=== PATIENT | female | born 1970 | race Caucasian/White ===

== ENCOUNTER 2022-08-28 09:54 | Observation (INO) ==
--- NOTE | 2022-07-22 15:03 | PAT Medication Instructions ---
Medication Instructions Date of Service July 22, 2022 Home Medications meloxicam 15 mg tablet 15 mg PO QAM ASK your surgeon for instructions meloxicam 15 mg tablet 15 mg PO QAM Other Notes NOTHING TO EAT OR DRINK AFTER MIDNIGHT. If you have any questions please call us at [phone] or [phone] or [phone] or [phone]
--- NOTE | 2022-08-03 08:19 | Anesthesiology Consultation ---
Date of Service August 03, 2022 Assessment & Plan (1) Encounter for pre-operative examination: Plan - check urine test STAT am DOS. - Outpatient joint assessment: Patient is currently scheduled for inpatient pathway. If re-evaluated pending system levels during current pandemic/surgeon requests outpatient pathway, patient is not acceptable candidate for outpatient joint program from anesthesia standpoint. Chart Review Chart Review: Acceptable Risk for Surgery and Patient seen in Pre Admission Testing Teaching & Discussion Pre-Anesthesia Teaching/Discussion Notes: Instructed NPO after midnight before surgery, except medications with 15 cc of water. Medication instructions provided according to the PAT guidelines. History Surgery Operation Date: 08/28/22 09:20 Proposed Procedures p Left Total Knee Arthroplasty - Lj Kebede, Height/Weight Height: 5 ft 6.5 in Weight: 140.614 kg Allergies Allergy/AdvReac Type Severity Reaction Status Date / Time Penicillins Allergy Intermediate Rash Verified 07/22/22 14:22 Opioids - Morphine Analogues AdvReac Intermediate nausea Verified 08/03/22 08:21 Medications Home Medications Medication Instructions Recorded Confirmed Last Taken meloxicam 15 mg tablet 15 mg PO QAM 06/03/22 07/22/22 Unknown Additional Notes: Pt states she takes claritin as needed for seasonal allergies, was advised to NOT take this day of surgery. This was also written on her medication instructions. She denied additional medications, questions or concerns. Past Medical History Medical History (Updated 08/03/22 @ 09:11 by Nay Patrick PA-C) History of COVID-19 09/2021, home test, not hosp; headache, nausea, congestion, body aches>resolved. Hx of reduction of closed fracture lt. leg Patient denies h/o stroke, seizures, heart attack, heart failure, DM, HTN, blood clots or blood transfusions. Exercise / Class Metabolic Activity III < 4 Walking/Shop/Light housework (denies chest discomfort or shortness of breath with usual activities, does not ambulate stairs due to knee pain, ambulates with cane) Past Surgical History Surgical History Hx laparoscopic cholecystectomy Hx of breast augmentation Hx of section x2 Hx of gastric bypass Past Anesthesia History No Hx of Anesthesia Complications and No Family Hx of Anesthesia Complications History of PONV History of PONV (denies needing scop patch) and Hx of Motion Sickness Social History Smoking Status: Never smoker Do You Dip or Chew Tobacco: No Hx Alcohol Use: Yes Alcohol type: wine Alcohol Intake Frequency Comment: once per week Hx Substance Use: No substance use type: does not use Review of Systems Patient denies chest pain, shortness of breath, dyspnea on exertion, snoring, witnessed apneas, reflux, fever, chills, cough, wheezing, or palpitations. Physical Exam Vital Signs Vitals BP 135/82 P 71 TEMP 97.8 SP02 99% on RA RESP 17 Physical Full cervical extension range of motion without pain TMD 3.5 finger breadths Mallampati Score 2 Dentition: implant left upper side and several caps/crowns; denies chipped or loose teeth, caps/crowns, implants or bridges Lungs: normal respiratory effort. Good air movement, clear throughout to aus cultation, no adventitious breath sounds Cardiac: regular rate and rhythm, no murmurs noted Carotid arteries: negative bruit bilat Lab Results Anesthesia Preop Results Results Anesthesia Widget: WBC 5.52 K/ul (4.8-10.8) 08/03/22 Hgb 15.0 g/dl (12.0-16.0) 08/03/22 Hct 45.1 % (37.0-47.0) 08/03/22 Plt 193 K/uL (130-400) 08/03/22 Na 139 mmol/L (136-145) 08/03/22 K 4.1 mmol/L (3.5-5.1) 08/03/22 Cl 107 mmol/L (98-107) 08/03/22 CO2 27 mmol/L (21-32) 08/03/22 BUN 15 mg/dl (6-23) 08/03/22 Creat 0.76 mg/dl (0.6-1.2) 08/03/22 Glucose Level 91 mg/dl (70-99(Fasting)) 08/03/22 PT 10.6 Seconds (9.0-12.0) 08/03/22 PTT 27.5 Seconds (21.0-31.0) 08/03/22 INR 1.0 (0.9-1.1) 08/03/22 Blood Type A Positive 08/03/22 Antibody Screen NEGATIVE 08/03/22 Testing Electrocardiogram Date: 08/03/22 Sinus bradycardia, rate 51 bpm Rightward axis Chest X-Ray Date: 08/03/22 No acute process. COVID-19 Risk Screen Screening Information COVID-19 Screen Date: 08/03/22 Exposure 21 Days Family/Household +COVID Last 21 Days: No Exposure 10 Days Any COVID Exposure Last 10 Days: No Symptoms Last 10 Days Experienced COVID Sx Last 10 Days: No + COVID 0-90 Days COVID + in Last 0-90 Days: No
--- NOTE | 2022-08-27 17:15 | History & Physical Report ---
Date of Service August 27, 2022 Assessment & Plan (1) Osteoarthritis of left knee: We will proceed with a left total knee arthroplasty. Postoperatively she will be started on aspirin for DVT prophylaxis and kept overnight in the hospital for postop medical management. She plans to go to outpatient physical therapy in [facility] upon discharge. History of Present Illness Chief Complaint: Osteoarthritis of the left knee. Primary Care Provider: Manpreet Roberts is a pleasant 51-year-old female who has been dealing with chronic left knee pain. This has been going on for over 10 years. She does have a gastric bypass surgery done in 2009. She did gain a little bit of weight back. She is having a lot of difficulty ambulating. Both of her knees are chronically sore. She has been having injections for years in her knees. X-rays and clinical examination been diagnostic for advanced osteoarthritis of the left knee. After failed conservative treatment, she has elected proceed with a left total knee arthroplasty. Allergies Allergy/AdvReac Type Severity Reaction Status Date / Time Penicillins Allergy Intermediate Rash Verified 07/22/22 14:22 Opioids - Morphine Analogues AdvReac Intermediate nausea Verified 08/03/22 08:21 Home Medications Medication Instructions Recorded Confirmed Type meloxicam 15 mg tablet 15 mg PO QAM 06/03/22 07/22/22 History Past Med/Surg History Medical History History of COVID-19 09/2021, home test, not hosp; headache, nausea, congestion, body aches>resolv ed. Hx of reduction of closed fracture lt. leg Surgical History Hx laparoscopic cholecystectomy Hx of breast augmentation Hx of section x2 Hx of gastric bypass Social History Smoking Status: Never smoker Second Hand Exposure: Yes (hx growing up); Do You Dip or Chew Tobacco: No; Tobacco Cessation Education Requested by Patient: No Hx Alcohol Use: Yes Alcohol type: wine Hx Substance Use: No Preferred Language: Djiboutian Communication Ability: Effective Clinical Review Specialist Required: No Beliefs That Will Affect Care: None Current Living Situation: Spouse and Family Other Information That Helps Us Care for You: No Feels Safe at Home: Yes Safety Concerns: Feels Safe At This Time Assistive Devices: Glasses Assistive Devices Comment: glasses for distance Review of Systems All systems reviewed & are unremarkable except as noted in HPI & below. Physical Exam On physical examination of the left knee, she has a varus deformity. She is range of motion 0 to 120 degrees. No instability. Pain of the distal medial femoral condyle.. Constitutional WD/WN, vitals as above Eyes PERRL, conjunctivae normal, anicteric sclerae ENMT external ear and nose normal, oropharynx normal Neck trachea midline, no thyromegaly Respiratory normal respiratory effort, lungs clear to auscultation Cardiovascular RRR, no murmur, no edema Gastrointestinal (Abdomen) normal bowel sounds, soft, nontender, no hepatosplenomegaly Skin no rashes, warm and dry Psychiatric A+Ox3, euthymic affect Results & Data Results & Data Laboratory Results . Diagnostic Findings X-rays of the left knee show advanced osteoarthritis with joint space narrowing, osteophyte formation, and [id number] articulation. PG Care Time/CCT Total # of Minutes Spent Total Time Spent with Patient: Total time spent is greater than 50% in coordination of care (as documented) at patient's floor/unit and/or counseling patient: Coding Level of Care Code None Diagnoses Osteoarthritis of left knee M17.12
[~2022-08-28 09:54] MED LIST: ACETAMINOPHEN 500 MG TAB PO SCH; BUPIVACAINE 0.5 % 5 MG/1 ML PF 10ML VIAL ONE; FAMOTIDINE 20 MG TAB PO SCH; GABAPENTIN 900 MG DOSE PO SCH; Ketorolac (*for OR use only*) 30 MG, dexAMETHasone 4 MG, KETAMINE HCL (**OR use only) 1... INFIL SCH; LR 500ML BOLUS, THEN 15ML/HR IV SCH; LR 60ML/HR IV SCH; ROPIVACAINE 0.5% 5 MG/ML 30 ML VIAL ONE; TRANEXAMIC ACID 1,000 MG **IV Intra-op IV SCH; TRANEXAMIC ACID 1,000 MG **IV Pre-op IV SCH; dexAMETHasone 4 MG TAB PO SCH
[2022-08-28] MEDS ORDERED: PROPOFOL IV EMULSION 10 MG/ML 20 ML VIAL IV ONE ×5 (11:12→14:27)
[2022-08-28] MEDS ORDERED: fentaNYL citrate PF 100 MCG/2 ML VIAL ONE (11:13)
[2022-08-28] MEDS ORDERED: MIDAZOLAM HCL 1 MG/ML 2ML VIAL ONE ×2 (11:13→12:43)
[2022-08-28] MEDS ORDERED: ONDANSETRON INJ 2 MG/ML 2 ML VIAL ONE (11:23)
[2022-08-28] MEDS ORDERED: DEXAMETHASONE SOD INJ 4 MG/ML VIAL ONE (11:23)
--- NOTE | 2022-08-28 11:35 | History & Physical Bridge Note ---
Date of Service August 28, 2022 History & Physical Bridge Note I have examined the patient, reviewed the History & Physical and in the interval since the performance of the History & Physical I have noted the following changes of clinical significance: no changes noted
[2022-08-28] MEDS ORDERED: ePHEDrine sulfate 50 MG/ML AMP IV PRN (11:50)
[2022-08-28] MEDS ORDERED: ATROPINE SULFATE 0.1 MG/ML 10ML SYR IV PRN (11:50)
[2022-08-28] MEDS ORDERED: ONDANSETRON INJ 2 MG/ML 2 ML VIAL IV PRN ×2 (11:50→15:56)
[2022-08-28] MEDS ORDERED: fentaNYL citrate PF 100 MCG/2 ML VIAL IV PRN (11:50)
[2022-08-28] MEDS ORDERED: ORTHO JOINT ANESTHETIC ONE (12:05)
[2022-08-28] MEDS ORDERED: LIDOCAINE 2% 2 ML VIAL/AMP(20MG/ML) INFIL ONE (12:44)
[2022-08-28] MEDS ORDERED: KETAMINE 50 MG/5 ML SYRINGE ONE (12:52)
--- NOTE | 2022-08-28 14:49 | Operative Report ---
PG Post Operative Report Pre & Post Diagnosis Operation Date: 08/28/22 12:00 Pre-Op Diagnosis: DJD Left Knee Post-Op Diagnosis: DJD Left Knee I identified the patient and participated in the time-out.: Yes Procedure Operation Date: 08/28/22 12:00 Actual Procedures p Left Total Knee Arthroplasty(Left) - Lj Kebede DO Surgeon Lj Kebede DO Dish Washer Lj Xavier PA-C Estimated Blood Loss 50 Findings Consistent with Post-Op Diagnosis Specimens Left femoral tibial bone Description of Procedure Implants used: I used a Nickolas Persona total knee arthroplasty system with a size 8 standard PS femur, D PRK tibia with a 14 x 135 stem extension, 3 mm offset, and bilateral 5 mm augments, 28 mm oval patella, and a size 14 CPS polyethylene bearing. All components were cemented in place with Biomet cement. Alejandra arrived [facility] for the above procedure. She was seen in the preoperative holding area and the operative extremity was identified and signed. She was given a preoperative antibiotic, TXA, a spinal anesthetic and an adductor nerve block. She was taken back to the operating room and laid on the table in supine position. She was given basic sedation. The operative knee was then prepped and draped in sterile fashion. A timeout was done, and the patient and the operative extremity was properly identified. A midline incision was made directly over the patella. Dissection was taken down to the extensor mechanism. A midvastus arthrotomy was used. The medial retinaculum was released and the fat pad was mostly excised. The knee was flexed and the ACL, PCL, and meniscus were removed. A drill was sent down the center of the femoral canal followed by an intramedullary jacinto. Off that jacinto a distal femoral cutting block was placed. 9 mm was resected off the distal femur at 5 of valgus. A posterior referencing AP sizing guide was then placed on the distal femur. The femur measured to be a size 8. 2 drill holes were placed in 3 of external rotation. A 4-in-1 cutting block was then impacted into place. Anterior, posterior, and chamfer cuts were then made. The proximal tibia was then exposed. A decision was made to do PRK tibia and a 135 stem due to her weight. The tibial canal was reamed up to a size 14 mm reamer. A proximal tibial resection guide was placed in the proximal tibia was resected. A size D tibial component seem to be the best fit. A 3 mm augment seem to center the implant. The proximal tibia was then prepared. A trial implant was then placed. I used a size 14 CPS polyethylene insert. The knee was brought through a full range of motion and felt to be stable. The peg holes for the femoral component were then drilled. The patella was then everted and 9 mm was resected off the posterior aspect of the patella. The patella measured to be a size 28 oval. 3 peg holes were then drilled. A trial patella was placed. The knee was once again brought through a full range of motion and felt to be stable. Trial components were then removed. The surrounding soft tissues were injected with 100 cc of an orthopedic pain control cocktail. All components were then cemented into place with Biomet cement. The final polyethylene insert was then snapped into place. Once cement was dry the tourniquet was deflated. Hemostasis was obtained. A dilute betadyne lavage was then done for 3 minutes. The joint was then irrigated with normal saline solution. The midvastus arthrotomy was then closed with #1 Vicryl suture. The skin was closed with 2-0 Vicryl, 3-0V lock suture, and panchito. A soft compressive dressing was placed. She was then transferred to a hospital bed and taken to the postanesthesia care unit in stable condition. She tolerated the procedure well. Lj Xavier PA-C, was present for the entire procedure. He was critical for patient positioning, prepping, draping, retraction exposure, wound closure and application of sterile dressing. I attest to the content of the Intraoperative Record and any orders documented therein. Any exceptions are noted below.
--- NOTE | 2022-08-28 15:30 | Anesthesiology Progress Note ---
Date of Service August 28, 2022 Anesthesia Post Procedure Vital Signs Vital Signs: Temp Pulse Pulse Resp BP BP Pulse Ox 08/28/22 15:20 53 L 18 124/72 98 08/28/22 15:10 53 L 16 118/72 98 08/28/22 15:00 98.4 F 55 L 18 119/66 100 08/28/22 10:31 08/28/22 10:31 98.1 F 79 18 136/89 96 O2 Del Method O2 Flow Rate 08/28/22 15:20 Room Air 08/28/22 15:10 Room Air 08/28/22 15:00 Oxymask 6 08/28/22 10:31 Room Air 08/28/22 10:31 Room Air Pain Intensity Left Knee: Pain Intensity: 5 Transfer of Care Handoff Completed per policy Notes Mental Status: alert / awake / arousable and participated in evaluation Patient Amnestic to Procedure: Yes Nausea / Vomiting: adequately controlled Pain: adequately controlled Airway Patency, RR, SpO2: stable & adequate BP & HR: stable & adequate Hydration State: stable & adequate Neuraxial Anesthesia: was administered and sensory block is resolving Anesthetic Complications: no major complications apparent and Pt Satisfied with anesthetic care
--- NOTE | 2022-08-28 15:35 | XRay Report ---
XR knee LT 1 or 2V routine CLINICAL HISTORY: Surgical Post Op TECHNIQUE: 2 views of the left knee were obtained. Comparison: Comparison is made to knee radiographs 06/03/2022 FINDINGS: Patient is status post total knee arthroplasty with expected postsurgical changes including soft tiss ue swelling and subcutaneous emphysema. No periarticular lucency or hardware fracture is seen. IMPRESSION: Expected postoperative appearance status post placement of total knee arthroplasty. ACT 112: Negative or not required by law. Electronically signed by: Kuldeep Hanson M.D. 08/28/2022 3:34 PM
[2022-08-28] MEDS ORDERED: METOCLOPRAMIDE HCL INJ 5 MG/ML 2 ML VIAL IV PRN (15:56)
[2022-08-28] MEDS ORDERED: MAGNESIUM HYDROXIDE SUSP 30 ML UDC PO PRN (15:56)
[2022-08-28] MEDS ORDERED: NALOXONE HCL 0.4 MG/1 ML VIAL/CARP IV PRN (15:56)
[2022-08-28] MEDS ORDERED: bisacodyL 10 MG SUPP PR PRN (15:56)
[2022-08-28] MEDS: SODIUM CHLORIDE 0.9% 1000ML 1,000 ML IV SCH (16:12)
[2022-08-28] MEDS: KETOROLAC 30 MG/ML VIAL IV SCH ×2 (16:25→21:34)
[2022-08-28] MEDS: oxyCODONE HCL IR 5 MG TAB (IMMEDIATE RELEASE) PO PRN ×2 (18:09→22:38)
[2022-08-28] MEDS: ASPIRIN 81 MG ECTAB PO SCH (20:34)
[2022-08-28] MEDS: DOCUSATE SODIUM 100 MG CAP PO SCH (20:34)
[2022-08-28] MEDS: ceFAZolin 2000MG 2,000 MG/15 ML SYR IV SCH (20:35)
[2022-08-28] MEDS: HYDROmorphone INJ 0.5 MG/0.5 ML SYR IV PRN (20:36)
[2022-08-28] MEDS ORDERED: SENNA 8.6 MG TAB PO SCH (21:00)
[2022-08-28] MEDS: ACETAMINOPHEN 500 MG TAB PO SCH (21:35)
[2022-08-29] MEDS: HYDROmorphone INJ 0.5 MG/0.5 ML SYR IV PRN ×2 (00:45→07:00)
[2022-08-29] MEDS: SODIUM CHLORIDE 0.9% 1000ML 1,000 ML IV SCH (02:29)
[2022-08-29] MEDS: oxyCODONE HCL IR 5 MG TAB (IMMEDIATE RELEASE) PO PRN ×3 (04:24→12:17)
[2022-08-29] MEDS: KETOROLAC 30 MG/ML VIAL IV SCH ×2 (04:25→10:08)
[2022-08-29] MEDS: ceFAZolin 2000MG 2,000 MG/15 ML SYR IV SCH (04:25)
[2022-08-29] MEDS: ACETAMINOPHEN 500 MG TAB PO SCH (05:12)
[2022-08-29] MEDS ORDERED: dexAMETHasone 4 MG TAB PO SCH (08:00)
[2022-08-29] MEDS: ASPIRIN 81 MG ECTAB PO SCH (08:24)
[2022-08-29] MEDS: DOCUSATE SODIUM 100 MG CAP PO SCH (08:25)
[2022-08-29] MEDS ORDERED: MULTIVITAMIN TAB PO SCH (09:00)
[2022-08-29] MEDS ORDERED: MELOXICAM 7.5 MG TAB PO SCH (09:00)
--- NOTE | 2022-08-29 09:03 | Orthopedic Progress Note ---
Date of Service August 29, 2022 Assessment & Plan (1) Status post left knee replacement: Overall she is doing very well. She is not having much pain in the left knee. She will be seen by physical therapy today for ambulation and range of motion exercises. She is on aspirin for DVT prophylaxis. The nursing staff can change her dressing after physical therapy today. She can be discharged home later today. She will follow-up with orthopedics in 2 weeks. Shaji Roberts was seen and examined at bedside this morning. Overall she is doing very well. She is not having much pain in the left knee. She has been up and ambulating to the bathroom. She has no complaints.. Review of Systems All systems reviewed & are unremarkable except as noted in HPI & below. Physical Exam On physical examination of the left knee, the dressing is clean and dry. Her leg is out full extension. She has active dorsiflexion plantarflexion of her left ankle.. Results & Data Results & Data Laboratory Results . Diagnostic Findings Postoperative x-rays of the left knee show the prosthesis to be in anatomic alignment without any evidence of fracture, dislocation, or loosening.. PG Care Time/CCT Total # of Minutes Spent Total Time Spent with Patient: Total time spent is greater than 50% in coordination of care (as documented) at patient's floor/unit and/or counseling patient: Coding Level of Care Code 28490 Post Operative Follow-Up Diagnoses Status post left knee replacement Z96.652
--- NOTE | 2022-08-29 09:04 | Discharge Summary ---
Date of Service August 29, 2022 Admission HPI (Per Admitting) Alejandra is a pleasant 51-year-old female who has been dealing with chronic left knee pain. This has been going on for over 10 years. She does have a gastric bypass surgery done in 2009. She did gain a little bit of weight back. She is having a lot of difficulty ambulating. Both of her knees are chronically sore. She has been having injections for years in her knees. X-rays and clinical examination been diagnostic for advanced osteoarthritis of the left knee. After failed conservative treatment, she has elected proceed with a left total knee arthroplasty. Admission Exam (Per Admitting) On physical examination of the left knee, she has a varus deformity. She is range of motion 0 to 120 degrees. No instability. Pain of the distal medial femoral condyle.. Principal Diagnosis Same as "Discharge Diagnosis" noted below under Discharge Instructions. Discharge Exam On physical examination of the left knee, the dressing is clean and dry. Her leg is out full extension. She has active dorsiflexion plantarflexion of her left ankle.. Discharge Data Procedures Performed Operation Date: 08/28/22 12:00 Actual Procedures p Left Total Knee Arthroplasty(Left) - Lj Kebede DO Ordered Studies 08/28/22 05:00 US - OR guided needle placemen Routine Hospital Course (1) Status post left knee replacement: On August 28, 2022 Alejandra arrived at [facility] and underwent a left knee replacement without complication. Postoperatively she was started on aspirin for DVT prophylaxis and transferred to the general orthopedic floors. Her hospital course was uneventful. On postop day #1, her vital signs were stable and her pain was well controlled. She was able to participate well with physical therapy doing ambulation and range of motion exercises. She was then discharged home. She will follow-up with orthopedics in 2 weeks. PG Care Time/CCT Total # of Minutes Spent Total Time Spent with Patient: Total time spent is greater than 50% in coordination of care (as documented) at patient's floor/unit and/or counseling patient: Discharge Plan Discharge Items Patient Disposition: Home - Home Health Services Reason For Visit: POST OP Discharge Diagnosis: Left knee replacement Activity: Per Instructions section Non-emergency contact: Surgeon Call non-emergency contact if: your wound has increased redness and your wound has increased drainage Follow-up/Referrals: Manpreet Malagon PA-C [Primary Care Provider] - Diet: Regular Addtl Attending Provider Instructions: Activity and Therapy Recommendations: * If you are using [facility] then therapy will be provided at your home until they feel you have accomplished all of your goals. * If you are using [facility] then Physical Therapy will be provided until they feel you are ready to start Outpatient Physical Therapy. * If you are not using home therapy then Outpatient Physical Therapy should start about 3-5 days from your day of surgery. Therapy will last about 6-10 weeks * It is important not to put a pillow under your knee when you are relaxing or sleeping. It is just as important to make sure you are getting your knee perf ectly straight as it is to regain your knee bend. * You were shown a series of exercises in the hospital. Do these exercises three times each day including the exercises you were shown in physical therapy. * Get up and walk several times each day. For the first four weeks, try not to stand or walk for more than one hour at a time. If you do stand or walk for more than one hour, you will not hurt anything, but your leg will likely swell. * As you feel comfortable, you may change from the walker or crutches to a cane and then to independent walking. Medications: * Narcotic You will likely be sent home from the hospital with a prescription for the narcotic pain medication that worked best throughout your stay. * Aspirin Most patients will be required to take Aspirin 81mg twice a day for 6 weeks after surgery. This is obtained [id number] and a prescription is not necessary. * Other medications may be prescribed for specific circumstances. If you have a ny questions, please call the office at . * Resume previous home medications unless otherwise instructed TEDs/Elastic Stockings: The white elastic stockings help limit swelling and prevent blood clots from forming in your legs.~ The more you wear them, the more they work. Wear them for six weeks. Dressing Care: The dressing can be changed after physical therapy on postop day #1. Daily dry dressing changes for a few days, especially if the incision is still draining some. If the incision is not draining then you may leave the panchito open to air. If there is a little bit of drainage or if the panchito are getting stuck on your clothing then cover the incision with a dry dressing. The panchito will be removed at your 2 week follow-up appointment. Showering: You may shower 5 days from the day of surgery as long as the incision is no longer draining. You may shower with the panchito exposed. Let soapy water run over the panchito and pat them dry. Do not scrub or soak the incision. Things To Watch For: * Drainage from the incision site that occurs more than one week after your surgery. * Increased redness at the incision site. * Fever above 102 degrees Fahrenheit. * Unusual chest pain or shortness of breath. * Call [facility] at with any of the above problems Follow-Up Visit: Follow-up with Dr. Kebede's PA (Lj Xavier) 2-3 weeks after your day of surgery. He will remove your panchito and answer any questions. If you have any additional questions or concerns, Dr Kebede is usually in the office at the same time and will be available An appointment was probably scheduled when you signed-up for surgery in the office. If you have any questions call Office Instructions: More detailed instructions as well as Frequently Asked Questions were provided in a folder by our office when you signed-up for surgery. Please review these instructions when you get home. If you have any further questions or concerns, please feel free to call the office at [phone] Pending Studies at Discharge: No Stand-Alone Forms: [facility], Smoking Cessation Medications and DC Order Prescriptions: New aspirin 81 mg Tablet,Delayed Release (Dr/Ec) 81 mg PO BID 42 Days Qty: 84 0RF oxycodone-acetaminophen 5-325 mg tablet 1 tab PO Q6H PRN (Reason: pain) Qty: 30 0RF Continued meloxicam 15 mg tablet 15 mg PO QAM Admission Data Admit Date/Time: 08/28/22 15:00 Attending Provider: Lj Kebede Admit Provider: Lj Kebede Primary Care Provider: Manpreet Malagon
== END 2022-08-29 13:15 | disposition home health service (06) ==
LOC: 3N 09:54 → ASU 09:54

== ENCOUNTER 2023-02-05 05:14 | Observation (INO) ==
--- NOTE | 2023-02-01 10:57 | Anesthesiology Consultation ---
Date of Service February 01, 2023 Assessment & Plan (1) Encounter for pre-operative examination: Chart Review Chart Review: Acceptable Risk for Surgery and Patient NOT seen in Pre Admission Testing - Check test AM DOS - Patient is NOT an OPJ candidate (due to BMI) -Infectious Disease screening: Per PAT nursing assessment on 02/01/23. Patient started with congestion and runny nose 01/21/23. Seen by PCP- prescribed abx and Flonase for sinus infection. Home test Covid negative. Symptoms improving. No known infectious disease contacts in past 10 days. No recent travel outside the country. Patient will be 15 days from symptom onset/symptoms improving- patient can proceed as scheduled without additional preop Covid testing or additional Covid precautions. Left TKA 08/28/22= Done under SAB at L3-4 with three attempts. History Surgery Operation Date: 02/05/23 10:00 Proposed Procedures p Right Total Knee Arthroplasty - Lj Kebede, DO Height/Weight Height: 5 ft 6.5 in Weight: 140.614 kg Allergies Allergy/AdvReac Type Severity Reaction Status Date / Time Penicillins Allergy Intermediate Rash Verified 02/01/23 09:33 Opioids - Morphine Analogues AdvReac Intermediate nausea, Verified 02/01/23 09:33 itching Medications Home Medications Medication Instructions Recorded Confirmed Last Taken meloxicam 15 mg tablet 15 mg PO QAM 06/03/22 02/01/23 08/21/22 clindamycin HCl 300 mg capsule 300 mg PO ONCE #2 caps 12/30/22 02/01/23 Unknown Vitamin B-1 1 tab PO QAM 02/01/23 02/01/23 Unknown ascorbic acid (vitamin C) 500 mg 500 mg PO QAM 02/01/23 02/01/23 Unknown tablet (Vitamin C) calcium 500 mg tablet 500 mg PO QAM 02/01/23 02/01/23 Unknown cholecalciferol (vitamin D3) 25 25 mcg PO QAM 02/01/23 02/01/23 Unknown mcg (1,000 unit) capsule (Vitamin D3) fluticasone propionate 50 1 spray intranasal BID PRN ud 02/01/23 02/01/23 Unknown mcg/actuation nasal spray,suspension multivitamin 1 tab PO QAM 02/01/23 02/01/23 Unknown Past Medical History Medical History Osteoarthritis Hx of reduction of closed fracture lt. leg History of COVID-19 09/2021, home test, not hosp; headache, nausea, congestion, body aches>resolved. Past Surgical History Surgical History History of left knee replacement Hx of gastric bypass Hx of breast augmentation Hx of section x2 Hx laparoscopic cholecystectomy Social History Smoking Status: Never smoker Do You Dip or Chew Tobacco: No Hx Alcohol Use: Yes Alcohol type: wine alcohol intake frequency: a few times a month Hx Substance Use: No substance use type: does not use Lab Results Anesthesia Preop Results Results Anesthesia Widget: WBC 7.20 K/ul (4.8-10.8) 01/13/23 Hgb 14.5 g/dl (12.0-16.0) 01/13/23 Hct 43.9 % (37.0-47.0) 01/13/23 Plt 247 K/uL (130-400) 01/13/23 Na 138 mmol/L (136-145) 01/13/23 K 4.3 mmol/L (3.5-5.1) 01/13/23 Cl 106 mmol/L (98-107) 01/13/23 CO2 26 mmol/L (21-32) 01/13/23 BUN 14 mg/dl (6-23) 01/13/23 Creat 0.80 mg/dl (0.6-1.2) 01/13/23 Glucose Level 94 mg/dl (70-99(Fasting)) 01/13/23 PT 10.4 Seconds (9.0-12.0) 01/13/23 PTT 25.9 Seconds (21.0-31.0) 01/13/23 INR 0.9 (0.9-1.1) 01/13/23 Blood Type A Positive 01/13/23 Antibody Screen NEGATIVE 01/13/23 Testing Electrocardiogram Date: 08/03/22 Sinus bradycardia, rate 51 bpm Rightward axis Chest X-Ray Date: 08/03/22 No acute process.
[2023-02-05] MEDS ORDERED: FAMOTIDINE 20 MG TAB PO SCH (06:00)
[2023-02-05] MEDS ORDERED: GABAPENTIN 900 MG DOSE PO SCH (06:00)
[2023-02-05] MEDS ORDERED: dexAMETHasone 4 MG TAB PO SCH (06:00)
[2023-02-05] MEDS ORDERED: LR 60ML/HR IV SCH (06:00)
[2023-02-05] MEDS ORDERED: LR 500ML BOLUS, THEN 15ML/HR IV SCH (06:00)
[2023-02-05] MEDS ORDERED: TRANEXAMIC ACID 1,000 MG **IV Intra-op IV SCH (06:00)
[2023-02-05] MEDS ORDERED: TRANEXAMIC ACID 1,000 MG **IV Pre-op IV SCH (06:00)
[2023-02-05] MEDS ORDERED: ACETAMINOPHEN 500 MG TAB PO SCH (06:00)
[2023-02-05] MEDS ORDERED: ORTHO JOINT MIX INFIL SCH (06:00)
[2023-02-05] MEDS ORDERED: BUPIVACAINE 0.5 % 5 MG/1 ML PF 10ML VIAL ONE (06:21)
[2023-02-05] MEDS ORDERED: BUPIVACAINE 0.25% PF 30 ML VIAL ONE (06:21)
[2023-02-05] MEDS ORDERED: ceFAZolin 3000MG/72.5 ML BAG IV ONE (06:22)
[2023-02-05] MEDS ORDERED: MIDAZOLAM HCL 1 MG/ML 2ML VIAL ONE (06:34)
--- NOTE | 2023-02-05 06:35 | History & Physical Bridge Note ---
Date of Service February 05, 2023 History & Physical Bridge Note I have examined the patient, reviewed the History & Physical and in the interval since the performance of the History & Physical I have noted the following changes of clinical significance: no changes noted
--- OUTSIDE RECORDS SUMMARY | 2023-02-05 06:37 | External Medical Summary | Summary of Care ---
Author Name Unknown Organization [facility] [address] [facility] [address] Phone [phone] Care Team Providers Care Battery Plate Remover Name Role Phone Manpreet Gregory PA-C Primary Care Provider [phone] Reason for Visit * Reason Comments Sinus Problem Cold Symptoms Encounter Details Date Type Department Care Team (Late st Contact Info) Description 01/25/2023 9:10 AM EST [facility] [address] [place] [address] [id number] Harpreet Pugh PA-C [address] [place] [address] Acute non-recurrent frontal sinusitis*; Acute non-recurrent maxillary sinusitis Allergies Active Allergy Reactions Criticality Noted Date Comments Penicillins Rash 10/22/2003 documented as of this encounter (statuses as of 01/25/2023) Medications Medication Sig Dispensed Refills Start Date End Date Status FLINTSTONES PLUS IRON PO CHEW 1 tab twice a day 0 Active VIACTIV 500-100-40 PO CHEW 1 chewable twice daily 0 Active VITAMIN D 400 UNIT PO TABS 1 tablet daily 0 Active Meloxicam 15 MG Oral TabletIndications:Pr imary osteoarthritis of both knees Take 1 Tablet by mouth in the morning. 90 Tablet 3 12/07/2022 Active Cefdinir 300 MG Oral Capsule (Omnicef) Take 1 Capsule by mouth in the morning and 1 Capsule before bedtime. Do all this for 10 days. For 10 days.. 20 Capsule 0 01/25/2023 02/04/2023 Active predniSONE 20 MG Oral Tablet (Deltasone) Take 1 Tablet by mouth in the morning and 1 Tablet before bedtime. Do all this for 5 days. 10 Tablet 0 01/25/2023 01/30/2023 Active Fluticasone Propionate 50 MCG/ACT Nasal Suspension (Flonase) Administer 2 Sprays into each nostril in the morning. 18.2 mL 2 01/25/2023 Active documented as of this encounter (statuses as of 01/25/2023) Active Problems Problem Noted Date Diagnosed Date Body mass index (BMI) of 45.0 to 49.9 in adult 0 06/08/2022 Overview: Per Obesity protocol - Per Obesity protocol B12 deficiency 04/14/2020 Lymphedema 11/04/2018 Degenerative arthritis of knee, bilateral 2018 Intestinal postoperative nonabsorption 7 POWER RESEARCH OTHER*[id number] 04/27/2006 Gastric bypass status for obesity 03/01/2006 Overview: Imtiaz Marquez documented as of this encounter (statuses as of 01/25/2023) Resolved Problems Problem Noted Date Diagnosed Date Resolved Date Body mass index (BMI) of 50. 0 to 59.9 in adult 05/06/2020 06/11/2022 Overview: Per Obesity protocol Primary osteoarthritis of left knee 08/19/2016 04/01/2017 Primary localized osteoarthr osis of right lower leg 03/26/2015 04/01/2017 Panniculitis 08/06/2008 04/01/2017 Other specified disorders of breast 08/06/2008 04/01/2017 Other ventral hernia without mention of obstruction or gangrene 03/14/2008 04/01/2017 Other specified pre-operative examination 03/06/2008 04/01/2017 ABDOMINAL AND THIGH PANNICULITIS 09/19/2007 04/01/2017 ADVANCE DIRECTIVE INFORMATION 09/07/2006 10/23/2021 Overview: No, Advance Directive brochure given to patient. Depression 12/11/2005 11/04/2018 Overview: ICD-10 update of inactive term Respiratory abnormality 12/11/200503/2017 Overview: ICD-10 update of inactive term Morbid obesity, BMI not known 12/12/2003 10/07/2007 Elderly multigravida 10/22/2003 018 BMI 45.0-49.9, adult 021 Overview: Per Obesity protocol documented as of this encounter (statuses as of 01/25/2023) Immunizations Name Administration Dates Next Due COVID-19 mRNA, LNP-s, No Pre serve, 2-Dose Series (Moderna) 03/19/2020 PPD 07/03/2014 SEASONAL INFLUENZA, PF, 6 M & Above, IM , (FLULAVAL or FLUZONE) 02/16/2022,11/30/2019,11/02/2018,2017 Seasonal Influenza, Quadriva lent, No Preserve, IM 01/10/2016 Seasonal Influenza, Split, I IV3, With Preserve, Inj 12/13/2013 TDAP (age 11 and older)(Adacel) 11/10/2013 Zoster Vaccine Recombinant (Shingrix) 2020 ,12/14/2019 documented as of this encounter Social History Tobacco Use Types Packs/Day Years Used Date Smoking Tobacco: Never Smokeless Tobacco: Never Tobacco Cessation:Counseling Given: Not Answered Alcohol Use Standard Drinks/Week Comments Not Currently 0 (1 standard drink = 0.6 oz pur e alcohol) occasional PHQ-2 Answer Date Recorded PHQ-2 Score 0 01/03/2018 Hunger Vital Sign Answer Date Recorded Worried About Running Out of Food in the Last Ye ar Never true 11/02/2018 Ran Out of Food in the Last Year Never true 11/02/2018 Sex and Gender Information Value Date Recorded Sex Assigned at Female 11/02/2018 6:17 PM EDT Gender Identity Female 11/02/2018 6:17 PM EDT Sexual Orientation Not on file Job Start Date Occupation Industry Not on file Not on file Not on file documented as of this encounter Last Filed Vital Signs Vital Sign Reading Time Taken Comments Blood Pressure 111/74 01/25/2023 9:18 AM EST Pulse 83 01/25/2023 9:18 AM EST Temperature 37.1 C (98.8 F) 01/25/2023 9:18 AM ES T Respiratory Rate 18 01/25/2023 9:18 AM EST Oxygen Saturation 97% 01/25/2023 9:18 AM EST Inhaled Oxygen Concentration - - Weight 136.1 kg (300 lb) 01/25/2023 9:18 AM EST Height 170.2 cm (5' 7") 01/25/2023 9:18 AM EST Body Mass Index 46.99 01/25/2023 9:18 AM EST documented in this encounter Patient Instructions * Patient Instructions* Harpreet Pugh PA-C - 01/25/2023 9:13 AM EST FLUIDS FLUIDS FLUIDS; MOTRIN AND TYLENOL DIRECTED FOR PAIN AND FEVERS; CONTINUE OTC COUGH / COLDMEDICINES DIRECTED; RETURN TO or SEE PCP IF NEEDED. HUMIDIFY documented in this encounter Progress Notes * Harpreet Pugh PA-C - 01/25/2023 9:13 AM EST Subjective: Alejandra Tobar is a 52 year old female. No chief complaint on file. There are no exam notes on file for this visit. HPI: 5-6 DAYS OF SINUS CONGESTION BUT ONLY GETTING WORSE; NO KNOW FEVERS; THICKER AND THICKER D/C WITH PRESSURE OVER AND BELOW EYES; BLOODY NOSE; USING COUGH DROPS, VICKS HUMIDIFIER, AND OTHER OTC; IS SCHEDULED TO HAVE KNEE SURGERY IN 10 DAYS AND REALLY DOESN'T WANT TO MISS IT OVER A SINUS INFECTION; HOME COVID TEST WAS NEGATIVE; NO NOTE NEEDED FOR WORK TODAY All other systems reviewed and are negative. Patient Active Problem List Diagnosis Code Intestinal postoperative nonabsorption K91.2 POWER RESEARCH OTHER*[id number] Gastric bypass status for obesity Z98.84 Lymphedema I89.0 Degenerative arthritis of knee, bilateral M17.0 B12 deficiency E53.8 Body mass index (BMI) of 45.0 to 49.9 in adult ([facility]) Z68.42 Current Outpatient Medications Medication Sig Dispense Refill Cefdinir 300 MG Oral Capsule (Omnicef) Take 1 Capsule by mouth in the morning and 1 Capsule before bedtime. Do all this for 10 days. For 10 days.. 20 Capsule 0 predniSONE 20 MG Oral Tablet (Deltasone) Take 1 Tablet by mouth in the morning and 1 Tablet before bedtime. Do all this for 5 days. 10 Tablet 0 Fluticasone Propionate 50 MCG/ACT Nasal Suspension (Flonase) Administer 2 Sprays into each nostril in the morning. 18.2 mL 2 FLINTSTONES PLUS IRON PO CHEW 1 tab twice a day VIACTIV 500-100-40 PO CHEW 1 chewable twice daily VITAMIN D 400 UNIT PO TABS 1 tablet daily Meloxicam 15 MG Oral Tablet Take 1 Tablet by mouth in the morning. 90 Tablet 3 No current facility-administered medications for this visit. Review of patient's allergies indicates: Allergen Reactions Penicillins Rash OBJECTIVE: BP 111/74 | Pulse 83 | Temp 37.1 C (98.8 F) (Tympanic) | Resp 18 | Ht 1.702 m (5' 7") | Wt 136.1 kg (300 lb) | SpO2 97% | BMI 46.99 kg/m | BSA 2.54 m Review of Systems: See HPI. All other systems reviewed and are negative. PHYSICAL EXAM: General: alert, healthy, and no distress; FATIGUED. Head: Normocephalic, No masses, lesions, tenderness or abnormalities Eye Exam: PERRLA, extraocular movements intact, conjunctiva are pink and non- injected, sclera GLASSY BUT NO D/C Ears: External ears normal, Canals clear, TM's VERY DULL ON LEFT AND DULLISH ON RNIGHT Nose: no mucosal erythema, + mucosal edema, ++ THICK BILAT with BLOODY discharge ON LEFT Oropharynx: no exudate, no erythema, lips, buccal mucosa, and tongue normal, and mucous membranes are moist; +++ PND; RASPY VOICE Lymph: NO palpable lymphadenopathy Heart: regular rate & rhythm, no murmur, and no gallops Lungs: chest symmetric with normal AP diameter, no chest deformities noted, no chest wall tenderness, lungs clear to auscultation; NO WHEEZE; NO RHONCHI ASSESSMENT/PLAN: Acute non-recurrent frontal sinusitis (Primary) Acute non-recurrent maxillary sinusitis Other orders - Cefdinir 300 MG Oral Capsule (Omnicef); Take 1 Capsule by mouth in the morning and 1 Capsule before bedtime. Do all this for 10 days. For 10 days.. - predniSONE 20 MG Oral Tablet (Deltasone); Take 1 Tablet by mouth in the morning and 1 Tablet before bedtime. Do all this for 5 days. - Fluticasone Propionate 50 MCG/ACT Nasal Suspension (Flonase); Administer 2 Sprays into each nostril in the morning. Harpreet Pugh PA-C 01/25/23 documented in this encounter Plan of Treatment Upcoming Encounters Date Type Department Care Team ([facility] st Contact Info) Description 03/15/2023 4:00 PM EST Nurse Only Ancillary [address] [phone] [place], Nurse [facility] [address] [address] Health Maintenance Due Date Last Done Comments Hepatitis B (1 of 3 - 3-dose series) 1968 HPV/Co-Test 1998 Cologuard 2013 Colonoscopy 2013 Colorectal Cancer Screening 2013 Fecal Occult Blood Test 2013 Sigmoidoscopy 2013 Depression Screening 04/01/2018 04/01/2017 COVID-19 Vaccine ( season) 2022 01/07/2021, 03/19/2020 Influenza Vaccine (FLU shot) (#1) 2022 02/16/2022, 11/30/2019, 11/02/2018, Additional history exists Cervical Cancer Screening 04/10/2023 Pap Smear 04/10/2023 04/10/2020, 03/2017, 10/16/2013, Additional history exists Mammogram 06/20/2023 2022, 12/30, 11/10/2018, Additional history exists DTaP,Tdap,and Td Vaccines (2 - Td or Tdap) 11/11/2023 11/10/2013 Lipid Panel 04/10/2025 04/10/2020, 03/2017, 02/27/2016, Additional history exists Diabetes Screening 05/15/2025 05/15/2022, 0 04/10/2020, 03/16/2020, Additional history exists Zoster Vaccines Completed 2020, 12/14/2019 GARDASIL-HPV IMMUNIZATION SERIES Aged Out No longer eligible based on patient's age to complete this topic MENINGOCOCCAL (MENACTRA/MENVEO) Aged Out No longer eligible based on patient's age to complete this topic Pneumococcal Vaccine: Pediatrics (0 to 5 Years) and At-Risk Patients (6 to 64 Years) Aged Out No longer eligible based on patient's age to complete this topic documented as of this encounter Medical Devices Implanted Type Area Ball Maker Device Identifier Shelf Expiration Date Model / Serial / Lot Implant Breast Kendra+ [id number] - [id number] Implanted:Qty: 1 on 10/15/2008 at [facility] Right: Breast MENTOR ROBERT 08/29/2013 [id number] / [id number] documented as of this encounter Visit Diagnoses Diagnosis Acute non-recurrent frontal sinusitis- Primary Acute non-recurrent maxillary sinusitis documented in this encounter Advance Directives Latest Code Status on File Code Status Date Activated Date Inactivated Comments Full Code 03/14/2008 1:00 PM 03/16/2008 4:12 PM Care Teams Battery Plate Remover Relationship Specialty Start Date End Date Manpreet Gregory PA-C [address] [place] [id number] PCP - General Physician Peace Officer 04/28/19 documented as of this encounter
[2023-02-05] MEDS ORDERED: ORTHO JOINT ANESTHETIC ONE (06:55)
[2023-02-05] MEDS ORDERED: fentaNYL citrate PF 100 MCG/2 ML VIAL ONE ×3 (07:02→08:43)
[2023-02-05] MEDS ORDERED: ATROPINE SULFATE 0.1 MG/ML 10ML SYR IV PRN (07:12)
[2023-02-05] MEDS ORDERED: diphenhydrAMINE 50 MG/ML VIAL IV PRN ×2 (07:12→10:20)
[2023-02-05] MEDS ORDERED: HYDROmorphone INJ 1 MG/ML SYRINGE IV PRN (07:12)
[2023-02-05] MEDS ORDERED: ePHEDrine sulfate 50 MG/ML AMP IV PRN (07:12)
[2023-02-05] MEDS ORDERED: PROMETHAZINE HCL 6.25 MG in SODIUM CHLORIDE 0.9% 50 ML IV PRN (07:12)
[2023-02-05] MEDS ORDERED: ONDANSETRON INJ 2 MG/ML 2 ML VIAL IV PRN ×2 (07:12→10:20)
[2023-02-05] MEDS ORDERED: KETAMINE HCL 10MG/ML SYR ONE (07:28)
[2023-02-05] MEDS ORDERED: ROCURONIUM BROMIDE 10 MG/ML 5 ML VIAL IV ONE (08:16)
[2023-02-05] MEDS ORDERED: PROPOFOL IV EMULSION 10 MG/ML 20 ML VIAL IV ONE (08:16)
[2023-02-05] MEDS ORDERED: LIDOCAINE 2% 2 ML VIAL/AMP(20MG/ML) INFIL ONE (08:16)
[2023-02-05] MEDS ORDERED: ONDANSETRON INJ 2 MG/ML 2 ML VIAL ONE (08:16)
[2023-02-05] MEDS ORDERED: DEXAMETHASONE SOD INJ 4 MG/ML VIAL ONE (08:16)
[2023-02-05] MEDS ORDERED: SUGAMMADEX SODIUM 200 MG/2 ML VIAL IV ONE (08:17)
[2023-02-05] MEDS ORDERED: KETOROLAC 30 MG/ML VIAL ONE (08:24)
--- NOTE | 2023-02-05 08:24 | Operative Report ---
PG Post Operative Report Pre & Post Diagnosis Operation Date: 02/05/23 07:00 Pre-Op Diagnosis: Degenerative Joint Disease Right Knee Post-Op Diagnosis: Degenerative Joint Disease Right Knee I identified the patient and participated in the time-out.: Yes Procedure Operation Date: 02/05/23 07:00 Actual Procedures p Right Total Knee Arthroplasty(Right) - Lj Kebede DO Surgeon Lj Kebede DO Ore Grader Lj Xavier PA-C Estimated Blood Loss 100 Findings Consistent with Post-Op Diagnosis Specimens Right femoral tibial bone Description of Procedure Implants used: I used a Nickolas Persona total knee arthroplasty system with a size 7 standard PS femur, D tibia, 28 oval patella, and a size 12 CPS polyethylene bearing. All components were cemented in place with Biomet cement. Alejandra arrived [facility] for the above procedure. She was seen in the preoperative holding area and the operative extremity was identified and signed. She was given a preoperative antibiotic, TXA, and an adductor nerve block. She was taken back to the operating room and laid on the table in supine position. She was given general anesthesia. The operative knee was then prepped and draped in sterile fashion. A timeout was done, and the patient and the operative extremity was properly identified. A midline incision was made directly over the patella. Dissection was taken down to the extensor mechanism. A midvastus arthrotomy was used. The medial retinaculum was released and the fat pad was mostly excised. The knee was flexed and the ACL, PCL, and meniscus were removed. A drill was sent down the center of the femoral canal followed by an intramedullary jacinto. Off that jacinto a distal femoral cutting block was placed. 9 mm was resected off the distal femur at 5 of valgus. A posterior referencing AP sizing guide was then placed on the distal femur. The femur measured to be a size 7. 2 drill holes were placed in 3 of external rotation. A 4-in-1 cutting block was then impacted into place. Anterior, posterior, and chamfer cuts were then made. The proximal tibia was then exposed. An external tibial alignment guide was placed. A tibial cut guide was then anchored in place and the proximal tibia was then resected. The posterior aspect of the knee was then opened up and any additional meniscus fragments and osteophytes were removed. The tibia measured to be a size D. The tibial plate was then placed in the appropriate rotation and the tibia was drilled and punched. Trial components were then placed. I used a size 12 CPS polyethylene insert. The knee was brought through a full range of motion and felt to be stable. The peg holes for the femoral component were then drilled. The patella was then everted and 9 mm was resected off the posterior aspect of the patella. The patella measured to be a size 28 oval. 3 peg holes were then drilled. A trial patella was placed. The knee was once again brought through a full range of motion and felt to be stable. Trial components were then removed. The surrounding soft tissues were injected with 100 cc of an orthopedic pain control cocktail. All components were then cemented into place with Biomet cement. The final polyethylene insert was then snapped into place. Once cement was dry the tourniquet was deflated. H emostasis was obtained. A dilute betadyne lavage was then done for 3 minutes. The joint was then irrigated with normal saline solution. The midvastus arthrotomy was then closed with #1 Vicryl suture. The skin was closed with 2-0 Vicryl, 3-0V lock suture, and panchito. A soft compressive dressing was placed. She was then transferred to a hospital bed and taken to the postanesthesia care unit in stable condition. She tolerated the procedure well. Lj Xavier PA-C, was present for the entire procedure. He was critical for patient positioning, prepping, draping, retraction exposure, wound closure and application of sterile dressing. I attest to the content of the Intraoperative Record and any orders documented therein. Any exceptions are noted below.
[2023-02-05] MEDS: fentaNYL citrate PF 100 MCG/2 ML VIAL IV PRN ×4 (08:50→09:22)
[2023-02-05] MEDS ORDERED: diphenhydrAMINE 50 MG/ML VIAL ONE (09:37)
--- NOTE | 2023-02-05 09:46 | XRay Report ---
RIGHT KNEE 2 VIEWS History: Right total knee arthroplasty. Degenerative arthritis. Postop. FINDINGS: The patient is status post a right total knee arthroplasty. The hardware is intact. No frac ture or dislocation. Skin panchito are in place. IMPRESSION: Right total knee arthroplasty. No evidence for hardware complication. ACT 112: Negative or not required by law. Electronically signed by: Kam Perez M.D. 02/05/2023 9:44 AM
[2023-02-05] MEDS ORDERED: MAGNESIUM HYDROXIDE SUSP 30 ML UDC PO PRN (10:20)
[2023-02-05] MEDS ORDERED: HYDROmorphone INJ 0.5 MG/0.5 ML SYR IV PRN (10:20)
[2023-02-05] MEDS ORDERED: bisacodyL 10 MG SUPP PR PRN (10:20)
[2023-02-05] MEDS ORDERED: FLUTICASONE PROPIONATE NA SPR 16 GM BTL PRN (10:20)
[2023-02-05] MEDS ORDERED: NALOXONE HCL 0.4 MG/1 ML VIAL/CARP IV PRN (10:20)
[2023-02-05] MEDS ORDERED: METOCLOPRAMIDE HCL INJ 5 MG/ML 2 ML VIAL IV PRN (10:20)
[2023-02-05] MEDS: oxyCODONE HCL IR 5 MG TAB (IMMEDIATE RELEASE) PO PRN ×4 (11:11→23:52)
[2023-02-05] MEDS: DOCUSATE SODIUM 100 MG CAP PO SCH ×2 (12:25→19:52)
[2023-02-05] MEDS: ASPIRIN 81 MG ECTAB PO SCH ×2 (12:25→19:52)
[2023-02-05] MEDS: MULTIVITAMIN TAB PO SCH (12:25)
[2023-02-05] MEDS: ACETAMINOPHEN 500 MG TAB PO SCH ×2 (13:34→22:05)
[2023-02-05] MEDS: KETOROLAC 30 MG/ML VIAL IV SCH ×2 (13:35→19:52)
[2023-02-05] MEDS: SODIUM CHLORIDE 0.9% 1,000 ML IV SCH ×2 (13:37→22:05)
[2023-02-05] MEDS: ALLERGY Noted to ORDERED Medication SCH ×4 (13:51→20:55)
--- NOTE | 2023-02-05 13:56 | Anesthesiology Progress Note ---
Date of Service February 05, 2023 Anesthesia Post Procedure Vital Signs Vital Signs: Temp Pulse Resp BP Pulse Ox O2 Del Method O2 Flow Rate 02/05/23 13:06 36.4 C L 58 L 22 127/80 98 Room Air 02/05/23 12:22 36.5 C 65 16 113/72 96 Room Air 02/05/23 11:09 36.4 C L 70 16 120/80 98 Room Air 02/05/23 10:40 36.4 C L 57 L 18 144/86 H 93 Room Air 02/05/23 10:05 36.5 C 59 L 16 148/67 H 96 Room Air 02/05/23 10:03 37.1 C 53 L 16 157/75 H 99 Oxymask 2 02/05/23 09:46 37.1 C 51 L 16 143/76 H 99 Oxymask 2 02/05/23 09:35 52 L 16 133/72 95 Room Air 0 02/05/23 09:25 55 L 19 156/78 H 94 Oxymask 2 02/05/23 09:15 52 L 16 157/83 H 98 Oxymask 2 02/05/23 09:05 62 19 154/85 H 96 Oxymask 4 02/05/23 08:55 63 21 190/85 H 99 Oxymask 6 02/05/23 08:46 36.4 C L 63 18 161/85 H 96 Oxymask 8 02/05/23 05:41 36.9 C 62 20 139/86 99 Room Air Pain Intensity Right Knee: Pain Intensity: 6 Transfer of Care Handoff Completed per policy Notes Mental Status: alert / awake / arousable and participated in evaluation Patient Amnestic to Procedure: Yes Nausea / Vomiting: adequately controlled Pain: adequately controlled Airway Patency, RR, SpO2: stable & adequate BP & HR: stable & adequate Hydration State: stable & adequate Anesthetic Complications: no major complications apparent and Pt Satisfied with anesthetic care
[2023-02-05] MEDS: ceFAZolin 2000MG 2,000 MG/15 ML SYR IV SCH ×2 (15:07→22:05)
[2023-02-05] MEDS ORDERED: SENNA 8.6 MG TAB PO SCH (21:00)
[2023-02-06] MEDS: KETOROLAC 30 MG/ML VIAL IV SCH ×2 (01:12→07:28)
[2023-02-06] MEDS: oxyCODONE HCL IR 5 MG TAB (IMMEDIATE RELEASE) PO PRN ×2 (03:40→08:13)
[2023-02-06] MEDS: ACETAMINOPHEN 500 MG TAB PO SCH (06:09)
[2023-02-06] MEDS: ASPIRIN 81 MG ECTAB PO SCH (07:28)
[2023-02-06] MEDS: MULTIVITAMIN TAB PO SCH (07:28)
[2023-02-06] MEDS: DOCUSATE SODIUM 100 MG CAP PO SCH (07:28)
[2023-02-06] MEDS ORDERED: dexAMETHasone 4 MG TAB PO SCH (08:00)
--- NOTE | 2023-02-06 08:16 | Orthopedic Progress Note ---
Date of Service February 06, 2023 Assessment & Plan (1) Status post right knee replacement: Overall she is doing fairly well. She is not having much pain in the right knee. She will be seen by physical therapy today for ambulation and range of motion exercises. She is on aspirin for DVT prophylaxis. She can be discharged home later today. She will follow-up orthopedics in 2 weeks. Shaji Sal was seen and examined at bedside this morning. Overall she is doing very well. She is not having much pain in the right knee. She has been up and ambulating to the bathroom. She has no complaints.. Review of Systems All systems reviewed & are unremarkable except as noted in HPI & below. Physical Exam On physical examination of the right knee, the dressing is clean and dry. Her leg is out full extension. She has active dorsiflexion plantarflexion of her right ankle. . Results & Data Results & Data Laboratory Results . Diagnostic Findings Postoperative x-rays of the right knee show the prosthesis to be in anatomic alignment without any evidence of fracture complication, or loosening.. PG Care Time/CCT Total # of Minutes Spent Total Time Spent with Patient: Total time spent is greater than 50% in coordination of care (as documented) at patient's floor/unit and/or counseling patient: Coding Level of Care Code 74411 Post Operative Follow-Up Diagnoses Status post right knee replacement Z96.651
--- NOTE | 2023-02-06 08:17 | Discharge Summary ---
Date of Service February 06, 2023 Principal Diagnosis Same as "Discharge Diagnosis" noted below under Discharge Instructions. Discharge Exam On physical examination of the right knee, the dressing is clean and dry. Her leg is out full extension. She has active dorsiflexion plantarflexion of her right ankle. . Discharge Data Procedures Performed Operation Date: 02/05/23 07:00 Actual Procedures p Right Total Knee Arthroplasty(Right) - Lj Kebede DO Ordered Studies 02/05/23 05:00 US - OR guided needle placemen Routine Hospital Course (1) Status post right knee replacement: On February 05, 2023 Jonelle arrived at [facility] and underwent a right knee replaced without complication. She had a general anesthetic. Postoperatively she was started on aspirin for DVT prophylaxis and transferred to the general orthopedic floors. Her hospital course was uneventful. On postop day #1, her vital signs were stable and her pain was well-controlled. She was able to place very well with physical therapy doing ambulation and range of motion exercises. She was then discharged home. She will follow-up with orthopedics in 2 weeks. PG Care Time/CCT Total # of Minutes Spent Total Time Spent with Patient: Total time spent is greater than 50% in coordination of care (as documented) at patient's floor/unit and/or counseling patient: Discharge Plan Discharge Items Patient Disposition: Home - Self-Care Reason For Visit: Degenerative Joint Disease Right Knee Discharge Diagnosis: Right knee replacement Activity: Per Instructions section Non-emergency contact: Surgeon Call non-emergency contact if: your wound has increased redness and your wound has increased drainage Follow-up/Referrals: Manpreet Malagon PA-C [Primary Care Provider] - Diet: Regular Addtl Attending Provider Instructions: Activity and Therapy Recommendations: * If you are using [facility] then therapy will be provided at your home until they feel you have accomplished all of your goals. * If you are using [facility] then Physical Therapy will be provided until they feel you are ready to start Outpatient Physical Therapy. * If you are not using home therapy then Outpatient Physical Therapy should start about 3-5 days from your day of surgery. Therapy will last about 6-10 weeks * It is important not to put a pillow under your knee when you are relaxing or sleeping. It is just as important to make sure you are getting your knee perfectly straight as it is to regain your knee bend. * You were shown a series of exercises in the hospital. Do these exercises three times each day including the exercises you were shown in physical therapy. * Get up and walk several times each day. For the first four weeks, try not to stand or walk for more than one hour at a time. If you do stand or walk for more than one hour, you will not hurt anything, but your leg will likely swell. * As you feel comfortable, you may change from the walker or crutches to a cane and then to independent walking. Medications: * Narcotic You will likely be sent home from the hospital with a prescription for the narcotic pain medication that worked best throughout your stay. * Cefadroxil -take the antibiotic twice a day for 10 days to help prevent infection. * Aspirin Most patients will be required to take Aspirin 81mg twice a day for 6 weeks after surgery. This is obtained [id number] and a prescription is not necessary. * Other medications may be prescribed for specific circumstances. If you have any questions, please call the office at . * Resume previous home medications unless otherwise instructed TEDs/Elastic Stockings: The white elastic stockings help limit swelling and prevent blood clots from forming in your legs.~ The more you wear them, the more they work. Wear them for six weeks. Dressing Care: The dressing can be changed after physical therapy on postop day #1. Daily dry dressing changes for a few days, especially if the incision is still d raining some. If the incision is not draining then you may leave the panchito open to air. If there is a little bit of drainage or if the panchito are getting stuck on your clothing then cover the incision with a dry dressing. The panchito will be removed at your 2 week follow-up appointment. Showering: You may shower 5 days from the day of surgery as long as the incision is no longer draining. You may shower with the panchito exposed. Let soapy water run over the panchito and pat them dry. Do not scrub or soak the incision. Things To Watch For: * Drainage from the incision site that occurs more than one week after your surgery. * Increased redness at the incision site. * Fever above 102 degrees Fahrenheit. * Unusual chest pain or shortness of breath. * Call [facility] at with any of the above problems Follow-Up Visit: Follow-up with Dr. Kebede's PA (Lj Xavier) 2-3 weeks after your day of surgery. He will remove your panchito and answer any questions. If you have any additional questions or concerns, Dr Kebede is usually in the office at the same time and will be available An appointment was probably scheduled when you signed-up for surgery in the office. If you have any questions call Office Instructions: More detailed instructions as well as Frequently Asked Questions were provided in a folder by our office when you signed-up for surgery. Please review these instructions when you get home. If you have any further questions or concerns, please feel free to call the office at [phone] Pending Studies at Discharge: No Stand-Alone Forms: My [facility], Smoking Cessation Medications and DC Order Prescriptions: New oxycodone 5 mg Tablet 5 mg PO Q4H PRN (Reason: pain) Qty: 30 0RF cefadroxil 500 mg capsule 500 mg PO BID 10 Days Qty: 20 0RF aspirin 81 mg Tablet,Delayed Release (Dr/Ec) 81 mg PO BID 42 Days Qty: 0 0RF Continued clindamycin HCl 300 mg capsule 300 mg PO ONCE Qty: 2 0RF Rx Instructions: Take two capsules one hour prior to dental procedure meloxicam 15 mg tablet 15 mg PO QAM multivitamin Tablet 1 tab PO QAM calcium 500 mg Tablet 500 mg PO QAM ascorbic acid (vitamin C) [Vitamin C] 500 mg Tablet 500 mg PO QAM fluticasone propionate [Flonase] 50 mcg/actuation [place],Suspension 1 spray INTRANASAL BID PRN (Reason: ud) Rx Instructions: administer into each nostril cholecalciferol (vitamin D3) [Vitamin D3] 25 mcg (1,000 unit) Capsule 25 mcg PO QAM Vitamin B-1 1 tab PO QAM Discharge Orders: Discharge Order (Routine); Ordered 02/06/23 Ordered By: Lj Kebede Admission Data Admit Date/Time: 02/05/23 08:45 Attending Provider: Lj Kebede Admit Provider: Lj Kebede Primary Care Provider: Manpreet Malagon
== END 2023-02-06 10:35 | disposition home or self-care (01) ==
LOC: 3E 05:14 → ASU 05:14